=== PATIENT | male | born 1930 | race Caucasian/White ===

== ENCOUNTER 2020-06-05 19:40 | Inpatient (IN) | payer MEDICARE, BC ==
[2020-06-05] MEDS ORDERED: HYDROcodone/APAP 7.5-325MG 1 EACH TAB PO PRN (22:19)
[2020-06-05] MEDS ORDERED: ONDANSETRON 4 MG/2 ML VIAL IVP PRN (22:22)
[2020-06-05] MEDS ORDERED: LEVOTHYROXINE 75 MCG TAB PO SCH (22:30)
[2020-06-05] MEDS ORDERED: LEVOTHYROXINE 50 MCG TAB PO SCH (22:30)
[2020-06-05 23:31] LABS: African American GFR (CKD) >90 (>60 ml/min/1.73 sqM); Anion Gap 7 mmol/L; Blood Urea Nitrogen 16 mg/dL (9-20); Calcium 7.9 mg/dL (8.4-10.2); Carbon Dioxide 29 mmol/L (22-30); Chloride 100 mmol/L (98-107); Glucose 84 mg/dL (74-99); Magnesium 1.6 mg/dL (1.6-2.3); Non-African American GFR(CKD) 83 (>60 ml/min/1.73 sqM); Potassium 3.8 mmol/L (3.5-5.1); Sodium 136 mmol/L (137-145)
[2020-06-05 23:52] LABS: Basophils # (A) 0.1 k/uL (0-0.2); Basophils % (A) 1 %; Eosinophils % (A) 0 %; HCT 35.4 % (39.0-53.0); HGB 11.2 gm/dL (13.0-17.5); Lymphocytes # (A) 1.5 k/uL (1.0-4.8); Lymphocytes % (A) 17 %; MCH 29.9 pg (25.0-35.0); MCHC 31.6 g/dL (31.0-37.0); MCV 94.5 fL (80.0-100.0); Mean Platelet Volume 7.7; Monocytes # (A) 0.5 k/uL (0-1.0); Monocytes % (A) 6 %; Neutrophils # (A) 6.7 k/uL (1.3-7.7); Neutrophils % (A) 75 %; Platelet Count 247 k/uL (150-450); RBC 3.75 m/uL (4.30-5.90); RDW 14.5 % (11.5-15.5)
[2020-06-06] MEDS ORDERED: LEVOTHYROXINE 75 MCG TAB PO SCH (06:30)
[2020-06-06] MEDS ORDERED: AMIODARONE 200 MG TAB PO SCH (09:00)
[2020-06-06] MEDS ORDERED: ENOXAPARIN 80 MG/0.8 ML SYRINGE SQ SCH (09:00)
[2020-06-06 09:31] LABS: HCT 41.5 % (39.0-53.0); HGB 12.9 gm/dL (13.0-17.5); Hypochromasia Slight; MCH 30.1 pg (25.0-35.0); MCHC 31.1 g/dL (31.0-37.0); MCV 96.8 fL (80.0-100.0); Mean Platelet Volume 7.2; Platelet Count 310 k/uL (150-450); RBC 4.29 m/uL (4.30-5.90); RDW 14.8 % (11.5-15.5); WBC 10.9 k/uL (3.8-10.6)
[2020-06-06 09:43] LABS: ALT 28 U/L (4-49); AST 57 U/L (17-59); African American GFR (CKD) >90 (>60 ml/min/1.73 sqM); Alkaline Phosphatase 195 U/L (38-126); Anion Gap 8 mmol/L; Blood Urea Nitrogen 15 mg/dL (9-20); Calcium 8.7 mg/dL (8.4-10.2); Carbon Dioxide 30 mmol/L (22-30); Chloride 100 mmol/L (98-107); Glucose 131 mg/dL (74-99); INR 1.1 (<1.2); Non-African American GFR(CKD) 81 (>60 ml/min/1.73 sqM); Potassium 4.7 mmol/L (3.5-5.1); Prothrombin Time 11.6 sec (9.0-12.0); Sodium 138 mmol/L (137-145)
[2020-06-06] MEDS: PANTOPRAZOLE 40 MG TABLET PO SCH ×2 (09:58→20:41)
[2020-06-06] MEDS: LACTOBACILLUS ACIDOPH & BULGAR 1 EACH PACKET PO SCH (09:58)
[2020-06-06] MEDS: MULTIVITAMINS, THERA 1 EACH TAB PO SCH (09:58)
[2020-06-06] MEDS: VIT A,C & E-LUTEIN-MINERALS 1 EACH TAB PO SCH (09:58)
[2020-06-06] MEDS: ASPIRIN 81 MG PO SCH (10:02)
[2020-06-06 11:03] LABS: Hepatitis A Antibody IgM Non-Reactive (Non-Reactive); Hepatitis B Core IgM Non-Reactive (Non-Reactive); Hepatitis B Surface Antigen Non-Reactive (Non-Reactive); Hepatitis C IgG Antibody Non-Reactive (Non-Reactive)
--- NOTE | 2020-06-06 11:45 | P.HPIM ---
History of Present Illness 89-year-old pleasant male was transferred from [facility] for ascites. Patient presented there with complaints of loss of appetite patient is found to have ascites was subsequently transferred here. Patient does have history of atrial fibrillation was on amiodarone. Patient denied any significant alcohol use history patient does drink 1 shot of hard liquor for a week. Patient denied any fever chills. Patient is unsure how he had how long his been on amiodarone he believes it since 2013 when he had a pacemaker for atrial fibrillation. Patient is also on Eliquis for atrial fibrillation. Patient denied any fever c hills nausea vomiting. Patient had abdominal computed tomography scan which showed mild bilateral pleural effusion along with ascites in the cirrhosis. Patient had mildly elevated INR of around 1.2. Mildly elevated liver enzymes alkaline phosphatase to normal AST and ALT.. Review of Systems REVIEW OF SYSTEMS: CONSTITUTIONAL: No fever, no malaise, no fatigue. HEENT: No recent visual problems or hearing problems. Denied any sore throat. CARDIOVASCULAR: No chest pain, orthopnea, PND, no palpitations, no syncope. PULMONARY: No shortness of breath, no cough, no hemoptysis. GASTROINTESTINAL: No diarrhea, no nausea, no vomiting, no abdominal pain. NEUROLOGICAL: No headaches, no weakness, no numbness. HEMATOLOGICAL: Denies any bleeding or petechiae. GENITOURINARY: Denies any burning micturition, frequency, or urgency. MUSCULOSKELETAL/RHEUMATOLOGICAL: Denies any joint pain, swelling, or any muscle pain. ENDOCRINE: Denies any polyuria or polydipsia. The rest of the 14-point review of systems is negative. Past Medical History Past Medical History: Atrial Fibrillation, Cancer, Diabetes Mellitus, GERD/Reflux, Hyperlipidemia, Hypertension, Thyroid Disorder Additional Past Medical History / Comment(s): HIATAL HERNIA. PROSTATE CANCER, BEING TREATED WITH LUPREN. History of Any Multi-Drug Resistant Organisms: None Reported Past Surgical History: Appendectomy, Back Surgery, Cholecystectomy, Pacemaker, Prostate Surgery Additional Past Surgical History / Comment(s): BILATERAL CATARACTS ,back surgery 1985 Past Anesthesia/Blood Transfusion Reactions: No Reported Reaction Type of Cardiac Device: Permanent Pacemaker Device Placement Date:: JUN 2013 IN [place] Past Psychological History: No Psychological Hx Reported Smoking Status: Never smoker Past Alcohol Use History: None Reported Past Drug Use History: None Reported - Past Family History Son(s) Family Medical History: Pulmonary Embolus Father Family Medical History: Cancer Medications and Allergies Home Medications Medication Instructions Recorded Confirmed Type Aspirin [Adult Low Dose Aspirin EC] 81 mg PO DAILY 12/18/15 06/05/20 History Ezetimibe [Zetia] 10 mg PO DAILY 12/18/15 06/05/20 History Glucosam/Syed-Msm1/C/Paulo/Bosw 1 tab PO DAILY 12/18/15 06/05/20 History [Glucosamine-Chondroitin Tablet] Levothyroxine Sodium [Synthroid] 50 mcg PO Q48H 12/18/15 06/05/20 History Levothyroxine Sodium [Synthroid] 75 mcg PO Q48H 12/18/15 06/05/20 History Lutein 1 tab PO DAILY 12/18/15 06/05/20 History Multivitamins, Thera [Multivitamin] 1 tab PO DAILY 12/18/15 06/05/20 History Omeprazole [PriLOSEC] 20 mg PO BID 12/18/15 06/05/20 History Simvastatin [Zocor] 20 mg PO HS 12/18/15 06/05/20 History metFORMIN HCL [Glucophage] 850 mg PO BID 12/18/15 06/05/20 History Amiodarone [Cordarone] 100 mg PO DAILY 06/05/20 06/05/20 History Apixaban [Eliquis] 2.5 mg PO BID 06/05/20 06/05/20 History HYDROcodone/APAP 7.5-325MG [[place] 1 tab PO DAILY 06/05/20 06/05/20 History 7.5-325] L.acidoph,Paracasei, B.lactis 1 cap PO DAILY 06/05/20 06/05/20 History [Probiotic] Leuprolide Acetate [Lupron Depot] 45 mg IM Q180D 06/06/20 06/06/20 History Allergies Allergy/AdvReac Type Severity Reaction Status Date / Time No Known Allergies Allergy Verified 06/05/20 22:01 Physical Exam Vitals: Vital Signs Temp Pulse Pulse Pulse Resp BP BP 06/06/20 09:20 86 18 06/06/20 09:15 98.4 F 86 18 149/75 06/06/20 05:05 99.2 F 114 H 18 118/69 06/06/20 05:00 98.2 F 71 18 103/58 06/05/20 21:32 98.5 F 74 18 157/81 Pulse Ox 06/06/20 09:20 06/06/20 09:15 94 L 06/06/20 05:05 95 06/06/20 05:00 92 L 06/05/20 21:32 95 Intake and Output 06/05/20 06/06/20 06/06/20 22:59 06:59 14:59 Other: Voiding Method Toilet Toilet # Voids 1 # Bowel Movements 1 Weight 70.7 kg PHYSICAL EXAMINATION: GENERAL: The patient is alert and oriented x3, not in any acute distress. Well developed, well nourished. HEENT: Pupils are round and equally reacting to light. EOMI. No scleral icterus. No conjunctival pallor. Normocephalic, atraumatic. No pharyngeal erythema. No thyromegaly. CARDIOVASCULAR: S1 and S2 present. No murmurs, rubs, or gallops. PULMONARY: Chest is clear to auscultation, no wheezing or crackles. ABDOMEN: Soft mild distention with the possible shifting dullness bowel sounds are present. MUSCULOSKELETAL: No joint swelling or deformity. EXTREMITIES: No cyanosis, clubbing, or pedal edema. NEUROLOGICAL: Gross neurological examination did not reveal any focal deficits. SKIN: No rashes. Results CBC & Chem 7: 06/06/20 08:31 06/06/20 08:31 Labs: Abnormal Lab Results - Last 24 Hours (Table) 06/05/20 06/05/20 06/06/20 Range/Units 22:45 22:45 08:31 WBC 10.9 H (3.8-10.6) k/uL RBC 3.75 L 4.29 L (4.30-5.90) m/uL Hgb 11.2 L 12.9 L (13.0-17.5) gm/dL Hct 35.4 L (39.0-53.0) % Sodium 136 L (137-145) mmol/L Glucose (74-99) mg/dL Calcium 7.9 L (8.4-10.2) mg/dL Alkaline Phosphatase (38-126) U/L Total Protein (6.3-8.2) g/dL Albumin (3.5-5.0) g/dL 06/06/20 Range/Units 08:31 WBC (3.8-10.6) k/uL RBC (4.30-5.90) m/uL Hgb (13.0-17.5) gm/dL Hct (39.0-53.0) % Sodium (137-145) mmol/L Glucose 131 H (74-99) mg/dL Calcium (8.4-10.2) mg/dL Alkaline Phosphatase 195 H (38-126) U/L Total Protein 6.0 L (6.3-8.2) g/dL Albumin 3.0 L (3.5-5.0) g/dL Thrombosis Risk Factor Assmnt - Choose All That Apply Any of the Below Risk Factors Present?: Yes Each Factor Represents 1 point: Obesity (BMI >25) Other Risk Factors: Yes Each Risk Factor Represents 3 Points: Age 75 years or older Other congenital or acquired thrombophilia - If yes, enter type in comment: No Thrombosis Risk Factor Assessment Total Risk Factor Score: 4 Thrombosis Risk Factor Assessment Level: Moderate Risk Assessment and Plan Plan: -Ascites, liver cirrhosis: Etiology of cirrhosis is not clear patient is undergoing workup with amiodarone will be held. Patient will be started on low- dose metoprolol instead. Patient may have sick sinus syndrome for which patient has a pacemaker. Anticoagulation will be held as well will be held temporally patient has chronic A. fib -Chronic atrial fibrillation presently rate controlled at this time -Hyperthyroidism -hyperlipidemia -Bautista failure reflux disease -Hyperthyroidism: Patient will be resumed on levothyroxine
[2020-06-06] MEDS ORDERED: MAGNESIUM SULFATE-D5W PMX 1 GM in DEXTROSE/WATER 1 100ML.BAG IVPB ONE (12:30)
[2020-06-06] MEDS: METOPROLOL TARTRATE 25 MG TAB PO SCH ×2 (13:05→20:41)
--- NOTE | 2020-06-06 15:51 | US ---
EXAMINATION TYPE: US paracentesis abd w/image DATE OF EXAM: 06/06/2020 COMPARISON: NONE HISTORY: Ascites. PROCEDURE: Maximal barrier technique was utilized. The skin overlying a suitable pocket of fluid was localized with ultrasound and the overlying skin was prepped and draped. Ultrasound was utilized with sterile technique. Lidocaine was used for local anesthesia and a skin alyssa made with a scalpel. Catheter was advanced under direct ultrasound guidance into a suitable pocket of fluid and approximately 4.7 liter s of yellow fluid were removed. Catheter was withdrawn and hemostasis achieved. There is no immedia te complication; the patient is discharged in stable condition. IMPRESSION: STATUS POST ULTRASOUND GUIDED PARACENTESIS FOR PALLIATION OF ASCITES. THIS PROCEDURE WA S PERFORMED BY THE UNDERSIGNED. Specimen sent for laboratory analysis.
--- NOTE | 2020-06-06 17:08 | CONS ---
CONSULTATION DATE OF DICTATION: 06/06/2020 REASON FOR CONSULTATION: New-onset ascites. HISTORY OF PRESENT ILLNESS: The patient is an 89-year-old pleasant white male transferred from [facility] for new-onset ascites. The patient has been complaining of mild abdominal distention, decreased appetite, intermittent nausea, not feeling well for the last 3-4 weeks' duration, and when he came to the emergency room he had a CT scan that showed moderate amount of ascites. The patient has a remote history of heavy alcohol use and lately has been drinking 1 or 2 shots a week. He presently denies any abdominal pain. No fever, chills or night sweats. He never had these symptoms in the past. History of atrial fibrillation, on Eliquis, currently on hold. The patient just had paracentesis done and approximately 4 L of fluid was removed and he is feeling much better. CT scan of the abdomen and pelvis done in the emergency room at [facility] did show evidence of nodular-appearing liver consistent with cirrhosis and moderate amount of ascites. PAST MEDICAL HISTORY: Significant for atrial fibrillation, on Eliquis, diabetes mellitus, hypertension, hyperlipidemia, hypothyroidism, gastroesophageal reflux disease, prostate cancer. PAST SURGICAL HISTORY: Back surgery, cholecystectomy, pacemaker implantation, bilateral cataract surgery. MEDICATIONS: Medications at home include aspirin, Zetia, Eliquis, glucosamine, Synthroid, multivitamin, Prilosec, Zocor, Glucophage, Cordarone, Eliquis, [place], probiotic and Lupron Depot. ALLERGIES: NONE. SOCIAL HISTORY: No smoking. Remote history of heavy alcohol use, but he has slowed down significantly lately. FAMILY HISTORY: Son had pulmonary embolism. Father had some kind of cancer. REVIEW OF SYSTEMS: CARDIOPULMONARY: He denies any chest pain or shortness of breath. GENITOURINARY: No dysuria or hematuria. MUSCULOSKELETAL: Some arthritis symptoms, especially in the back and lower extremities. ENT/VISION: Unremarkable. CONSTITUTIONAL: No recent weight loss. No fever, chills, night sweats. HEMATOLOGY: Unremarkable. PSYCHIATRY: Unremarkable. PHYSICAL EXAMINATION: He appears comfortable. VITAL SIGNS: Stable. Blood pressure is 137/86, pulse rate 68, temperature 98.7. HEENT examination unremarkable. Conjunctivae pink. Sclerae anicteric. Oral cavity no lesions. NECK: No JVD or lymph node enlargement. CHEST: Clear to auscultation. HEART: Regular rate and rhythm. ABDOMEN: Soft. There was no significant fluid. He is status post paracentesis an hour ago. EXTREMITIES: Trace pedal edema. NEUROLOGIC: Alert and oriented x3. No focal deficits. LABS/IMAGING: WBC 9, hemoglobin 11.2, platelets normal. Basic metabolic panel is within normal limits. BUN 16, creatinine 0.73. Alkaline phosphatase 195. AST and ALT are normal. T- bilirubin is 1. Albumin 3. Hepatitis serologies for A, B and C are negative. CT scan showed moderate amount of ascites and nodular-appearing liver consistent with liver cirrhosis. IMPRESSION: 1. New-onset ascites, most likely related to underlying chronic liver disease with cirrhosis of the liver noted on CT scan of the abdomen as well as moderate amount of ascites, status post large-volume paracentesis. Four liters of fluid was removed and patient is doing much better. 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 Hepatitis serologies for A, B and C are negative. 2. History of atrial fibrillation, on Eliquis, currently on hold. 3. History of diabetes mellitus, hypertension and hyperlipidemia. RECOMMENDATIONS: 1. Start him on Lasix 40 mg daily and Aldactone 100 mg daily. 2. Low-salt diet. 3. Monitor labs closely. 4. Await fluid cytology as well as albumin results. 5. Abstinence from alcohol. 6. Will follow with you closely. Thank you for this consultation. GARRETT / LISA: [id number] /
[2020-06-06 17:59] LABS: Appearance,BF Hazy; Nucleated Cells, Body Fluid 135 /uL; RBC, Body Fluid 235 /uL
[2020-06-06 18:16] LABS: Mononuclear WBC,Body Fluid 75 %; Polynuclear WBC,Body Fluid 25 %; Total Cells Counted,Body Fluid 100
[2020-06-06 21:36] LABS: Alpha Fetoprotein, Tumor Mkr <2.5 ng/mL (0.0-7.9)
[2020-06-06 22:23] LABS: % Iron Saturation 30.25 (15.00-50.00); Iron 85 ug/dL (65-175); Total Iron Binding Capacity 281 ug/dL (228-460)
[2020-06-07 01:49] LABS: Total Protein, Body Fluid 1490 mg/dL
[2020-06-07 02:27] LABS: Albumin, Fluid Source Paracentesis Fluid; Glucose, BF Source Paracentesis Fluid; Glucose, Body Fluid 104 mg/dL; LDH, Body Fluid Source Paracentesis Fluid
[2020-06-07 05:14] VITALS: BP 112/66; PULSE 63; RESP 16; TEMP 98.1
[2020-06-07] MEDS ORDERED: LEVOTHYROXINE 50 MCG TAB PO SCH (06:30)
[2020-06-07] MEDS: METOPROLOL TARTRATE 25 MG TAB PO SCH (08:35)
[2020-06-07] MEDS: VIT A,C & E-LUTEIN-MINERALS 1 EACH TAB PO SCH (08:35)
[2020-06-07] MEDS: ASPIRIN 81 MG PO SCH (08:35)
[2020-06-07] MEDS: LACTOBACILLUS ACIDOPH & BULGAR 1 EACH PACKET PO SCH (08:36)
[2020-06-07] MEDS: PANTOPRAZOLE 40 MG TABLET PO SCH (08:36)
[2020-06-07] MEDS: MULTIVITAMINS, THERA 1 EACH TAB PO SCH (08:36)
[2020-06-07] MEDS ORDERED: SPIRONOLACTONE 25 MG TAB PO SCH (09:00)
[2020-06-07] MEDS ORDERED: FUROSEMIDE 40 MG TAB PO SCH (09:00)
--- NOTE | 2020-06-07 09:50 | ECHOF ---
Referral Reason:chf MEASUREMENTS -------- HEIGHT: 167.6 cm WEIGHT: 70.3 kg BP: 149/75 RVIDd: 3.8 cm (< 3.3) IVSd: 1.3 cm (0.6 - 1.1) LVIDd: 4.0 cm (3.9 - 5.3) LVPWd: 1.3 cm (0.6 - 1.1) IVSs: 1.8 cm LVIDs: 2.5 cm LVPWs: 1.5 cm LA Diam: 3.5 cm (2.7 - 3.8) LAESV Index (A-L): 27.91 ml/m Ao Diam: 3.1 cm (2.0 - 3.7) AV Cusp: 1.6 cm (1.5 - 2.6) MV EXCURSION: 14.924 mm (> 18.000) MV EF SLOPE: 89 mm/s (70 - 150) EPSS: 0.6 cm MV E Dharmesh: 0.88 m/s MV DecT: 240 ms MV A Dharmesh: 0.84 m/s MV E/A Ratio: 1.04 AV maxP.59 mmHg AV meanP.28 mmHg RAP: 5.00 mmHg RVSP: 24.64 mmHg FINDINGS -------- Paced rhythm. This was a technically good study. The left ventricular size is normal. There is mild concentric left ventricular hypertrophy. Overa ll left ventricular systolic function is normal with, an EF between 60 - 65 %. The right ventricle is mild to moderately enlarged. Normal LA size by volume 22+/-6 ml/m2. The right atrium is normal in size. Interatrial and interventricular septum intact. There is mild aortic valve sclerosis. There is mild aortic stenosis present. Peak/mean gradient a cross the Aortic Valve is 19.59mmHg / 11.28mmHg. The mitral valve leaflets are mildly thickened. Mild mitral annular calcification present. Mild m itral regurgitation is present. Mild tricuspid regurgitation present. Right ventricular systolic pressure is normal at < 35 mmHg. Trace/mild (physiologic) pulmonic regurgitation. The aortic root size is normal. Normal inferior vena cava with normal inspiratory collapse consistent with estimated right atrial pre ssure of 5 mmHg. There is no pericardial effusion. CONCLUSIONS -------- 1. The left ventricular size is normal. 2. There is mild concentric left ventricular hypertrophy. 3. Overall left ventricular systolic function is normal with, an EF between 60 - 65 %. 4. The right ventricle is mild to moderately enlarged. 5. There is mild aortic valve sclerosis. 6. There is mild aortic stenosis present. 7. Peak/mean gradient across the Aortic Valve is 19.59mmHg / 11.28mmHg. 8. The mitral valve leaflets are mildly thickened. 9. Mild mitral annular calcification present. 10. Mild mitral regurgitation is present. 11. Mild tricuspid regurgitation present. 12. Trace/mild (physiologic) pulmonic regurgitation. 13. There is no pericardial effusion. SURGERY TECH: Trudy Ruiz RDCS
[2020-06-07 10:50] LABS: Ceruloplasmin 36.7 mg/dL (20.0-60.0)
--- NOTE | 2020-06-07 12:19 | P.DS ---
Providers Date of admission: 06/05/20 21:11 Expected date of discharge: 06/07/20 Attending physician: Diane Cade Consults: 06/05/20 22:25 Consult Physician Routine Consulting Provider: Anisha Acevedo Consult Reason/Comments: New Onset Ascites Do you want consulting provider notified?: Yes, Notify in am Placement Type Exists?: Yes Primary care physician: Arnie Cruz Hospital Course: Final diagnosis -Ascites, liver cirrhosis -Chronic atrial fibrillation presently rate controlled at this time -Hyperthyroidism -hyperlipidemia -Gastroesophageal reflux disease -Hyperthyroidism Discharge disposition Patient is being discharged in a stable condition with guarded prognosis to home. Patient will follow-up with Dr. Cruz in the outpatient setting upon discharge. Patient also instructed follow-up with GI Dr. Acevedo in 1-2 weeks. Patient will continue on Lasix and Aldactone upon discharge. Total time taken is greater than 35 minutes. Hospital course This is a 89-year-old male who was recently admitted with ascites new onset and was transferred from another hospital and was being closely monitored. Patient was seen and evaluated by GI and underwent paracentesis with approximately 4 L of ascitic fluid removed. Patient states his abdominal discomfort is much improved. Specimens of fluid analysis sent and currently pending. Patient will follow-up with GI in the outpatient setting in 1-2 weeks. Patient was also started on Aldactone along with Lasix and prescriptions provided upon discharge. Patient instructed to continue to hold metformin until follow up with primary care provider. Patient also instructed to refrain from any alcohol use. Amiodarone was discontinued and patient was started on metoprolol and a prescription was provided. Currently no reports of chest pain, shortness of breath, or palpitations. Patient is afebrile. No reports of nausea or vomiting and patient is tolerating diet. Patient will be discharged home today. On exam vital signs are stable. Temp is 98.1F, pulse is 63, respirations are 16, blood pressure is 112/66, oxygen saturation is 93-95% on room air. Cardio S1, S2 are muffled. Respiratory system shows diminished breath sounds at the bases with no wheezing or rhonchi noted. Abdomen is soft and nontender. Nervous system shows no focal deficits. Please refer to medication reconciliation sheet for a list of medications. Patient Condition at Discharge: Stable Plan - Discharge Summary Discharge Rx Participant: No New Discharge Prescriptions: New Spironolactone [Aldactone] 100 mg PO DAILY 30 Days #120 tablet Furosemide [Lasix] 40 mg PO DAILY 30 Days #30 tab Metoprolol Tartrate [Lopressor] 25 mg PO BID 30 Days #60 tab Continue Aspirin [Adult Low Dose Aspirin EC] 81 mg PO DAILY Ezetimibe [Zetia] 10 mg PO DAILY Glucosam/Syed-Msm1/C/Paulo/Bosw [Glucosamine-Chondroitin Tablet] 1 tab PO DAILY Levothyroxine Sodium [Synthroid] 50 mcg PO Q48H Levothyroxine Sodium [Synthroid] 75 mcg PO Q48H Lutein 1 tab PO DAILY Multivitamins, Thera [Multivitamin (formulary)] 1 tab PO DAILY Omeprazole [PriLOSEC] 20 mg PO BID Simvastatin [Zocor] 20 mg PO HS L.acidoph,Paracasei, B.lactis [Probiotic] 1 cap PO DAILY HYDROcodone/APAP 7.5-325MG [[place] 7.5-325] 1 tab PO DAILY Apixaban [Eliquis] 2.5 mg PO BID Leuprolide Acetate [Lupron Depot] 45 mg IM Q180D Discontinued metFORMIN HCL [Glucophage] 850 mg PO BID Amiodarone [Cordarone] 100 mg PO DAILY Discharge Medication List Aspirin [Adult Low Dose Aspirin EC] 81 mg PO DAILY 12/18/15 [History] Ezetimibe [Zetia] 10 mg PO DAILY 12/18/15 [History] Glucosam/Syed-Msm1/C/Paulo/Bosw [Glucosamine-Chondroitin Tablet] 1 tab PO DAILY 12/18/15 [History] Levothyroxine Sodium [Synthroid] 50 mcg PO Q48H 12/18/15 [History] Levothyroxine Sodium [Synthroid] 75 mcg PO Q48H 12/18/15 [History] Lutein 1 tab PO DAILY 12/18/15 [History] Multivitamins, Thera [Multivitamin (formulary)] 1 tab PO DAILY 12/18/15 [History] Omeprazole [PriLOSEC] 20 mg PO BID 12/18/15 [History] Simvastatin [Zocor] 20 mg PO HS 12/18/15 [History] Apixaban [Eliquis] 2.5 mg PO BID 06/05/20 [History] HYDROcodone/APAP 7.5-325MG [[place] 7.5-325] 1 tab PO DAILY 06/05/20 [History] L.acidoph,Paracasei, B.lactis [Probiotic] 1 cap PO DAILY 06/05/20 [History] Leuprolide Acetate [Lupron Depot] 45 mg IM Q180D 06/06/20 [History] Furosemide [Lasix] 40 mg PO DAILY 30 Days #30 tab 06/07/20 [Rx] Metoprolol Tartrate [Lopressor] 25 mg PO BID 30 Days #60 tab 06/07/20 [Rx] Spironolactone [Aldactone] 100 mg PO DAILY 30 Days #120 tablet 06/07/20 [Rx] Follow up Appointment(s)/Referral(s): Arnie Cruz MD [Primary Care Provider] - 06/12/20 1:00 pm Anisha Acevedo MD [STAFF PHYSICIAN] - 06/21/20 2:00 pm Ambulatory/Diagnostic Orders: Basic Metabolic Panel [LAB.AMB] Time Frame: 2 Days, Location: None Selected Activity/Diet/Wound Care/Special Instructions: Activity limited until follow-up Follow up with primary care provider upon discharge Follow-up with GI in the outpatient setting in 1-2 weeks Continue to monitor blood sugars and continue to hold metformin until primary follow-up May resume Eliquis and aspirin Avoid all alcohol intake Continue with Lasix and Aldactone Continue low-salt diet Discharge Disposition: HOME SELF-CARE
[2020-06-07 14:03] LABS: Albumin 2.78 g/dL (3.80-4.90)
--- NOTE | 2020-06-07 15:39 | P.PN ---
Subjective Progress Note Date: 06/07/20 Principal diagnosis: New onset ascites Same pleasant 81-year-old white male patient who was transferred from [facility] for new onset ascites. The patient states he started having mild discomfort in his abdomen and noticing distention over the last 3 or 4 weeks. He states he has had little appetite and feeling full very quickly. He had a CAT scan of the abdomen that showed moderate amount of ascites. Has a remote history of heavy alcohol use and lately has been drinking 1 or 2 shots a week. Yesterday he underwent paracentesis with 4.7 L of fluid removal. Today he states he feels much better, abdominal discomfort has improved, he denies any nausea or vomiting. Objective - Vital Signs Vital signs: Vital Signs Temp 98.1 F 06/07/20 05:13 Pulse 63 06/07/20 05:13 Resp 16 06/07/20 05:13 BP 112/66 06/07/20 05:13 Pulse Ox 93 L 06/07/20 05:13 Intake & Output 06/06/20 06/07/20 06/07/20 18:59 06:59 18:59 Other: Voiding Method Toilet Toilet # Voids 2 2 - Exam General appearance: The patient is alert, oriented, appears in no acute distress. HET: Head is normocephalic and atraumatic. Conjunctiva pink. Sclera anicteric. Neck: Supple without lymphadenopathy. Abdomen: Soft, nontender, nondistended with bowel sounds. No guarding or rigidity. Extremities: Normal skin color and turgor. No pedal edema Neurological: No focal deficits. Alert and oriented 3. 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 He is status post large volume paracentesis 4.7 L of fluid was removed. The patient is feeling much better today. Most likely chronic liver disease felt well related. Hepatitis serologies A, B, and C are negative. Status: Acute Code(s): K70.31 - ALCOHOLIC CIRRHOSIS OF LIVER WITH ASCITES SNOMED Code(s): 924491431 (2) Ascites Status: Acute Code(s): R18.8 - OTHER ASCITES SNOMED Code(s): 548794522 Plan: 1. Supportive care 2. Patient started on Lasix 40 mg and Aldactone 100 mg daily 3. Low sodium diet 4. Await fluid cytology and albumin results. 5. Abstinence from alcohol 6. Patient will need close follow-up in outpatient setting in 1-[address] Jeaneth Acevedo I agree with the dictator's note, documented as a scribe by Destiny Montgomery.
== END 2020-06-07 13:50 | disposition home or self-care (01) | DRG 433 ==
LOC: 5NMEDONC 21:11
PROVIDERS: ADMIT Hospitalist; ATTEND Hospitalist
PROC: 0W9G3ZX Drainage of Peritoneal Cavity, Percutaneous Approach, Diagnostic (ICD-10-PCS; principal; 2020-06-05)
DX: K70.31 Alcoholic cirrhosis of liver with ascites (principal); I48.20 Chronic atrial fibrillation, unspecified; J90 Pleural effusion, not elsewhere classified; E03.9 Hypothyroidism, unspecified; E05.90 Thyrotoxicosis, unspecified without thyrotoxic crisis or storm; E11.9 Type 2 diabetes mellitus without complications; C61 Malignant neoplasm of prostate; E78.5 Hyperlipidemia, unspecified; I10 Essential (primary) hypertension; K21.9 Gastro-esophageal reflux disease without esophagitis; R79.1 Abnormal coagulation profile; Z79.01 Long term (current) use of anticoagulants; Z79.82 Long term (current) use of aspirin; Z79.84 Long term (current) use of oral hypoglycemic drugs; Z79.890 Hormone replacement therapy; Z79.899 Other long term (current) drug therapy; Z95.0 Presence of cardiac pacemaker; Z83.2 Family history of diseases of the blood and blood-forming organs and certain disorders involving the immune mechanism; Z98.42 Cataract extraction status, left eye; Z98.41 Cataract extraction status, right eye; Z90.49 Acquired absence of other specified parts of digestive tract; E66.9 Obesity, unspecified; Z68.25 Body mass index [BMI] 25.0-25.9, adult; Z71.41 Alcohol abuse counseling and surveillance of alcoholic
CPT/HCPCS: 49083; 80048; 80053; 80074; 82042; 82103; 82105; 82390; 82945; 83516; 83540; 83550; 83615; 83735; 84157; 84165; 85025; 85027; 85610; 86038; 87070; 87075; 87205; 89050; 93005; 93306